=== PATIENT | male | born 1985 | race Two or more races ===

== ENCOUNTER 2023-01-23 23:12 | Inpatient (IN) | payer MEDICAID ==
[~2023-01-23] VITALS: Ht 180.3 cm; Wt 88.6 kg
[2023-01-23] MEDS ORDERED: ketorolac trometh inj. 60 MG/2 ML VIAL IM ONE (23:45)
[2023-01-23 23:50] LABS: BASOPHILS % (AUTO) 0.3 % (0-1); EOSINOPHILS # (AUTO) 0.1 X10'3 (0-0.9); EOSINOPHILS % (AUTO) 1.2 % (0-6); HEMATOCRIT 45.3 % (42.0-52.0); HEMOGLOBIN 15.7 g/dl (14.0-17.9); LYMPHOCYTES # (AUTO) 2.2 X10'3 (1.1-4.8); MEAN CORPUSCULAR HEMOGLOBIN 30.3 PG (27.0-31.0); MEAN CORPUSCULAR HGB CONC 34.6 g/dL (33.0-36.5); MEAN CORPUSCULAR VOLUME 87.5 FL (78-98); MONOCYTES # (AUTO) 0.5 X10'3 (0-0.9); MONOCYTES % (AUTO) 5.4 % (2-12); NEUTROPHILS # (AUTO) 6.4 X10'3 (1.8-7.7); NEUTROPHILS % (AUTO) 69.1 % (42-75); PLATELET COUNT 229 X10'3 (140-440); RED BLOOD COUNT 5.18 X10'6 (4.70-6.10); RED CELL DISTRIBUTION WIDTH 12.9 % (11.5-14.5); WHITE BLOOD COUNT 9.3 X10'3 (4.5-11.0)
[2023-01-24] VITALS (8 sets, daily range): BP systolic 101–113; BP diastolic 49–70
[2023-01-24 00:14] LABS: ALANINE AMINOTRANSFERASE 64 U/L (12-78); ALBUMIN/GLOBULIN RATIO 1.7 (1.1-1.5); ALKALINE PHOSPHATASE 84 IU/L (46-116); ANION GAP 10 (8-16); ASPARTATE AMINO TRANSFERASE 42 U/L (10-37); BILIRUBIN,TOTAL 1.7 MG/DL (0.1-1.0); BLOOD UREA NITROGEN 19 MG/DL (7-18); BUN/CREATININE RATIO 15.6 (10.0-20.0); CALCIUM 8.9 MG/DL (8.5-10.1); CHLORIDE 105 MMOL/L (99-107); CREATININE 1.22 MG/DL (0.60-1.10); GLUCOSE 130 MG/DL (70-104); POTASSIUM 3.3 MMOL/L (3.5-5.1); SODIUM 140 MMOL/L (135-145); TOTAL CARBON DIOXIDE 24.6 MMOL/L (24-32); TOTAL PROTEIN 6.3 G/DL (6.4-8.2); eGFR 67 ML/MIN
--- NOTE | 2023-01-24 01:33 | NUR ---
PATIENT TROPONIN DRAWN BY THIS NOTARY PUBLIC. PATIENT STATES HE FEELS FINE NOW. NO CHEST DISCOMFORT NOW. PATIENT STATES HE FEELS CALM. NO ARM DISCOMFORT. PATIENT IN WAITING ROOM. AWAITING AN ER BED.
[2023-01-24] MEDS ORDERED: nitroGLYCERIN 1gm ointment UD TP ONE (02:50)
[2023-01-24] MEDS ORDERED: aspirin 325mg tablet PO ONE (02:50)
[2023-01-24] MEDS ORDERED: NO HOME MEDS (03:08)
[2023-01-24 03:30] LABS: D-DIMER < 0.19 MG/L FEU (0-0.50)
--- NOTE | 2023-01-24 04:08 | NUR ---
DR MARTINS AT BEDSIDE TO EVALUATE PT
[2023-01-24] MEDS ORDERED: morphine 2 MG/ML inj. syringe IV PRN ×2 (04:15)
[2023-01-24] MEDS ORDERED: mag hydrox/Alum hydrox/simeth 30ml oral suspension PO PRN (04:15)
[2023-01-24] MEDS ORDERED: magnesium hydroxide 30ml (MOM) UD suspension PO PRN (04:15)
[2023-01-24] MEDS ORDERED: metoprolol tartrate 1mg/ml inj IV PRN (04:15)
[2023-01-24] MEDS ORDERED: ondansetron/PF 4mg/2ml inj IV PRN (04:15)
[2023-01-24] MEDS ORDERED: regadenoson 0.4mg/5ml syringe IV PRN (04:15)
[2023-01-24] MEDS ORDERED: aminophylline 250mg/10ml inj. IV PRN (04:15)
[2023-01-24] MEDS ORDERED: nitroGLYCERIN 0.4mg SUBLingual tab SL PRN ×2 (04:15)
[2023-01-24] MEDS ORDERED: acetaminophen 325mg tablet PO PRN ×2 (04:15)
[2023-01-24] MEDS ORDERED: aspirin 81mg, enteric-coated 1 TAB TABLET.DR PO SCH (08:00)
[2023-01-24] MEDS ORDERED: docusate sod 100mg capsule PO SCH (08:00)
--- NOTE | 2023-01-24 11:20 | NUR ---
DIANA ESCALERA FOR DIET ORDER FOR THE PT.
--- NOTE | 2023-01-24 14:41 | NUR ---
FLORIST MANAGER AT BEDSIDE.
== END 2023-01-24 17:51 | disposition home or self-care (01) | DRG 203 ==
LOC: ER 23:14 → ED HOLD 01-24 04:16 → OBSVTOIN 01-24 04:16
PROVIDERS: ADMIT Internal Medicine; ATTEND Internal Medicine
PROC: 4A02XM4 Measurement of Cardiac Total Activity, External Approach (ICD-10-PCS; principal; 2023-01-24)
PROC: 3E073KZ Introduction of Other Diagnostic Substance into Coronary Artery, Percutaneous Approach (ICD-10-PCS; 2023-01-24)
DX: R07.89 Other chest pain (principal); R00.1 Bradycardia, unspecified; Z82.49 Family history of ischemic heart disease and other diseases of the circulatory system; Z88.8 Allergy status to other drugs, medicaments and biological substances
CPT/HCPCS: 36415; 71045; 78452; 80053; 83880; 84484; 85025; 85379; 93017; 93306; A9500; G0378; J2785

== ENCOUNTER 2023-10-13 21:44 | Emergency (ER) | payer MEDICAID ==
[~2023-10-13] VITALS: Ht 180.3 cm; Wt 92.4 kg
[2023-10-13] MEDS ORDERED: SULF1TAB48 PO (22:36)
[2023-10-13] MEDS: ketorolac trometh inj. 60 MG/2 ML VIAL IM ONE (23:02)
[2023-10-13] MEDS: ondansetron 4mg rapidly disintigrating tab PO ONE (23:02)
[2023-10-13] MEDS: HYDROcodone/acetaminophen 5mg/325mg tablet PO ONE (23:13)
[2023-10-13 23:21] VITALS: BP 130/60; PULSE 79; RESP 16; TEMP 98.1; O2SAT 99
== END 2023-10-13 23:24 | disposition home or self-care (01) ==
LOC: ER 21:45
DX: S50.02XA Contusion of left elbow, initial encounter (principal); Z91.048 Other nonmedicinal substance allergy status; W50.0XXA Accidental hit or strike by another person, initial encounter; Y93.89 Activity, other specified; Y92.89 Other specified places as the place of occurrence of the external cause; Y99.8 Other external cause status
CPT/HCPCS: 73080; 96372; 99283; J1885